=== PATIENT | male | born 1950 | race Asian ===

== ENCOUNTER 2016-06-12 15:05 | Emergency (ER) | payer MEDICAID ==
[~2016-06-12] VITALS: Ht 157.5 cm; Wt 66.3 kg
[2016-06-12 16:09] LABS: Albumin 3.9 g/dL (3.4-5.0); Bilirubin, Total 0.5 mg/dL (0.2-1.0); Calcium 9.2 mg/dL (8.5-10.1); Potassium 4.1 mmol/L (3.5-5.1); Total Protein 7.2 g/dL (6.4-8.2)
[2016-06-12 16:17] LABS: Basophils # (auto) 0.1 uL; Basophils % (auto) 0.8 % (0.0-2.0); Eosinophils # (auto) 0.1 uL; Hematocrit 47.6 % (41.0-53.0); Hemoglobin 15.8 g/dL (13.5-17.5); Lymphocytes # (auto) 2.4 uL; Lymphocytes % (auto) 34.9 % (10.0-50.0); Mean Corpuscular Hemoglobin 30.8 pg (28.0-32.0); Mean Corpuscular Hgb Conc. 33.2 g/dL (32.0-36.0); Mean Corpuscular Volume 92.6 fL (80.0-100.0); Mean Platelet Volume 8.3 fL (7.4-10.4); Monocytes # (auto) 0.7 uL; Neutrophils # (auto) 3.7 uL; Neutrophils % (auto) 53.3 % (37.0-80.0); Platelet Count (auto) 170 10^3/uL (140-450)
[2016-06-12 21:57] VITALS: BP 126/79
[2016-06-12] MEDS ORDERED: MECLIZINE HCL 25 MG TAB PO ONE (22:15)
== END 2016-06-12 23:34 | disposition home or self-care (01) ==
LOC: ER 15:11
DX: I67.2 Cerebral atherosclerosis (principal)
CPT/HCPCS: 36415; 70450; 80053; 84484; 85025; 85049; 93005; 99285; J8597

== ENCOUNTER 2020-11-13 20:02 | Emergency (ER) | payer MEDICARE, MEDICAID ==
[~2020-11-13] VITALS: Ht 167.6 cm; Wt 68.0 kg
[2020-11-13 21:56] VITALS: BP 156/79
== END 2020-11-13 22:03 | disposition home or self-care (01) ==
LOC: EDBD 20:02 → ER 20:05
DX: S06.0X9A Concussion with loss of consciousness of unspecified duration, initial encounter (principal); J32.9 Chronic sinusitis, unspecified; S00.01XA Abrasion of scalp, initial encounter; R42 Dizziness and giddiness; W22.8XXA Striking against or struck by other objects, initial encounter; Y93.89 Activity, other specified; Y92.89 Other specified places as the place of occurrence of the external cause; Y99.8 Other external cause status
CPT/HCPCS: 70450; 72125; 93005